=== PATIENT | female | born 1995 | race African-American/Black ===

== ENCOUNTER 2021-04-22 20:15 | Emergency (ER) | payer SELFPAY ==
--- OUTSIDE RECORDS SUMMARY | 2021-04-22 20:19 | XMS REPORT | Continuity of Care Document ---
:1995 Author Organization [facility] t Address [address] [place] [address] Care Team Providers Name Role Phone JESSI Primary Care Physician Unavailable REZA Attending Clinician Unavailable Reza WILSON Attending Clinician Doctor Unassigned, Name Attending Clinician Unavailable Osmin ERICKSON C Attending Clinician YOLIE BOWEN M.D. Attending Clinician Unavailable YOLIE BOWEN M.D. Admitting Clinician Unavailable Payers Payer Name Policy Type Policy Number Effective Date Expiration Date S alyssa MEDICAID PENDING PENDING 2021 00:00:00 Problems Condition Condition Condition Status Onset Resolution Last Treating Co mments Source Name Details Category Date Date Treatment Clinician Date No known No known Disease Unive rs active active ity of problems problems [facility] Allergies, Adverse Reactions, Alerts Allergy Allergy Status Severity Reaction(s) Onset Inactive Treating Comm ents Source Name Type Date Date Clinician Trazodon Propensi Active Rash Univer s e ty to 8-10 ity of adverse 00:00: [place] reaction 00 Medical s Branch TRAZODON DRUG Active Rash Univers E INGREDI 8-10 ity of 00:00: [place] 00 [facility] Branch Social History Social Habit Start Date Stop Date Quantity Comments Source History of tobacco Chews Tobacco Uni versity of use [facility] [place] History [facility] University o f Alcohol Frequency [facility] edical Branch History [facility] o f Alcohol Std Drinks [place] [facility] [place] History [facility] o f Alcohol Binge [facility] al Branch Exposure to Unable to assess Univers ity of SARS-CoV-2 (event) [facility] Alcohol intake 2021-04-22 2021-04-22 .14 /d University of 00:00:00 00:00:00 [facility] Tobacco use and 2017-05-08 2017-05-08 Former user Universi ty of exposure 00:00:00 00:00:00 [facility] Cigarettes smoked 2017-05-08 2017-05-08 Univers ity of current (pack per 00:00:00 00:00:00 [facility] ) - Reported Branch Cigarette 2017-05-08 2017-05-08 University of pack-years 00:00:00 00:00:00 [facility] Alcohol Comment 2017-05-08 2017-05-08 1 glass of wince Uni versity of 00:00:00 00:00:00 daily and when [facility] drinking hard [place] liquor "I drink the whole bottle" Sex [birth year] Universit y of 00:00:00 00:00:00 [facility] Smoking Status Start Date Stop Date Source Current every day smoker 2017-05-08 00:00:00 Uni versity of [facility] Medications Ordered Filled Start Stop Current Ordering Indication Dosage Frequency Signature Comments Components Source Medication Medication Date Date Medication? Clinician (SIG) Name Name HYDROcodone 2021- No 1{tbl} 1 tablet, Univers -acetaminop 04-22 Oral, ity of hen (NORCO 21:30: 20:27 ONCE, 1 [place] as 5) 5-325 mg 00 :00 dose, On Medi karin tablet 1 Tue Branch tablet 04/22/21 at 1630, STEFANIE NaCl 0.9% 2019- No 500mL at 999 Univ ers (NS) bolus 8-10 08-10 mL/hr, 500 it y of infusion 16:00: 16:51 mL, IV [place] 500 mL 00 :00 Infusion, Medical ONCE, 1 Branch dose, 09/16/18 at 1100, STAT ketorolac 2018- No 30mg 30 mg, Unive rs (TORADOL) 09-16 Slow IV ity of injection 16:00: 15:07 Push, [place] 30 mg 00 :00 ONCE, 1 Medical dose, Sat Branch 09/16/18 at 1100, 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 DOXEPIN HCL 2014-02 Yes Take by Un adina (DOXEPIN 1-10 mouth. ity of ORAL) 21:31: [address] DOXEPIN HCL 2014-02 Yes Take by Un adina (DOXEPIN 1-10 mouth. ity of ORAL) 21:31: [address] OLANZAPINE 2014-02 Yes Take by Uni vers ORAL 1-10 mouth. ity of 21:30: [address] OLANZAPINE 2014-02 Yes Take by Uni vers ORAL 1-10 mouth. ity of 21:30: [address] CARBAMAZEPI 2014-02 Yes Take by Un adina NE ORAL 1-10 mouth. ity of 21:30: [address] CARBAMAZEPI 2014-02 Yes Take by Un adina NE ORAL 1-10 mouth. ity of 21:30: [address] DOXEPIN HCL 2014-02 Yes Take by Un adina (DOXEPIN 1-10 mouth. ity of ORAL) 15:31: [address] DOXEPIN HCL 2014-02 Yes Take by Un adina (DOXEPIN 1-10 mouth. ity of ORAL) 15:31: [address] OLANZAPINE 2014-02 Yes Take by Uni vers ORAL 1-10 mouth. ity of 15:30: [place] [facility] Branch OLANZAPINE 2014-02 Yes Take by Uni vers ORAL 1-10 mouth. ity of 15:30: [place] 53 [facility] Branch CARBAMAZEPI 2014-02 Yes Take by Un adina NE ORAL 1-10 mouth. ity of 15:30: [address] Branch CARBAMAZEPI 2014-02 Yes Take by Un adina NE ORAL 1-10 mouth. ity of 15:30: [address] Immunizations Ordered Filled Immunization Date Status Comments Sour e Immunization Name Name Td 2021-04-22 Completed University of 00:00:00 [facility] Td 2015-08-08 Completed University of 00:00:00 [facility] Td 2015-08-08 Completed University of 00:00:00 [facility] Td 2015-08-08 Completed University of 00:00:00 [facility] Td 2015-08-08 Completed University of 00:00:00 [facility] Vital Signs Vital Name Observation Time Observation Value Comments Source Systolic blood 2021-04-22 19:30:00 122 mm[Hg] Univer sity of [facility] Diastolic blood 2021-04-22 19:30:00 85 mm[Hg] Unive rsity [facility] Heart rate 2021-04-22 19:30:00 103 /min [facility] Body temperature 2021-04-22 19:30:00 36.67 Erika [facility] Respiratory rate 2021-04-22 19:30:00 20 /min [facility] Body weight 2021-04-22 19:30:00 77.111 kg [facility] BMI 2021-04-22 19:30:00 30.11 kg/m2 [facility] Oxygen saturation in 2021-04-22 19:30:00 100 /min [facility] Arterial blood by [facility] Pulse oximetry Branch Systolic blood 2018-09-16 15:00:00 105 mm[Hg] Univer sity of [facility] Diastolic blood 2018-09-16 15:00:00 68 mm[Hg] Unive rsity [facility] Heart rate 2018-09-16 15:00:00 82 /min [facility] Respiratory rate 2018-09-16 15:00:00 16 /min [facility] Oxygen saturation in 2018-09-16 15:00:00 100 /min [facility] Arterial blood by [facility] Pulse oximetry Branch Body temperature 2018-09-16 14:02:00 37 Erika [facility] Body weight 2018-09-16 14:02:00 57.607 kg [facility] BMI 2018-09-16 14:02:00 22.50 kg/m2 [facility] Procedures Procedure Date / Time Performing Clinician Source Performed XR TOES 2 VW RIGHT 2021-04-22 19:56:00 [facility] NOTICE OF PRIVACY 2021-04-22 19:25:51 Doctor Unassigned, No [facility] PRACTICES Name [facility] CONSENT/REFUSAL FOR 2021-04-22 19:25:30 [facility] AUTHORIZATION FOR 2019-04-03 06:01:00 Doctor Unassigned, No [facility] RELEASE OF PHI Name [facility] CT HEAD WO CONTRAST 2018-09-16 16:11:37 Israel Solorio [facility] URINALYSIS 2018-09-16 15:05:00 Israel Solorio [place] o f [facility] POCT TEST 2018-09-16 15:02:00 Israel Solorio [facility] Encounters Start End Encounter Admission Attending Care Care Encounter Source Date/Time Date/Time Type Type Clinicians Facility Department ID 2021-04-22 2021-04-22 Emergency X COBB, [facility] ERT [id number] Univers 14:36:00 17:29:00 ABEL kaur [facility] 2021-04-22 2021-04-22 Emergency Cobb, [facility] [id number] Univers 14:36:00 17:29:00 Abel OSORIO [id number] i ty of [place] [id number] [facility] [id number] [facility] 084 Branch 2021-04-22 2021-04-22 Orders Doctor CHARLES [id number] Univers 00:00:00 00:00:00 Only Unassigned, JASPREET [id number] ity of [place] [facility] [id number] Ramos as [id number] [place] [address] Branch 2019-04-03 2019-04-03 Orders Doctor ARACELI [id number] Univers 00:00:00 00:00:00 Only Unassigned, JASPREET [id number] ity of [place] [facility] [id number] [place] as [id number] [place] [address] Branch 2018-09-16 2018-09-16 Emergency Jayes, [facility] [id number] [facility] 09:05:08 11:51:00 Israel Osorio [id number] i ty [place] 4.2.7.2.686 [place] [id number] [place] [id number] Branch Results Test Test Test Results Result Source Description Time Comments Comments CT HEAD WO 2018-09- No acute intracranial Un iversity of CONTRAST 10 findings. Chronic changes [facility] 16:18:00 in the left temporal Bran ch lobeare unchanged CT and discussed in the body the report.?* * * * * * * * ORIGINAL REPORT * * * * * * * *HISTORY:Headache, acute, severe, worst BEGUM of life h/o craniotomymalformation surgery TECHNIQUE: Noncontrast head CT was performed. COMPARISON:11/01/2017, 05/27/2017. FINDINGS: Redemonstrated are postsurgical changes from a left parietal temporalcraniotomy. A region of consolidation is seen in the left temporal lobewith the CSF density collection is identified in the medial aspect, whichcould represent a resection cavity of the small arachnoid cyst. The findings in the left temporal lobe are unchanged from the last CT andcorrelation with prior history. The ventricles and sulci are otherwiseappropriate for patient's age. There is no midline shift. The basal cisterns are preserved. No largevascular territory infarction, intracranial hemorrhage or mass effect isseen. The extracranial tissues demonstrate no acute findings. Ut, Radiant Results Inft User - 09/16/2018 11:20 AM CDT* * * * * * * * ORIGINAL REPORT * * * * * * * *HISTORY:Headache, acute, severe, worst BEGUM of life h/o craniotomymalformation surgery TECHNIQUE: Noncontrast head CT was performed.COMPARISON:2017, 05/27/2017.FINDINGS:Redemon strated are postsurgical changes from a left parietal temporalcraniotomy. A region of consolidation is seen in the left temporal lobewith the CSF density collection is identified in the medial aspect, whichcould represent a resection cavity of the small arachnoid cyst. The findings in the left temporal lobe are unchanged from the last CT andcorrelation with prior history. The ventricles and sulci are otherwiseappropriate for patient's age.There is no midline shift. The basal cisterns are preserved. No largevascular territory infarction, intracranial hemorrhage or mass effect isseen. The extracranial tissues demonstrate no acute findings.IMPRESSIONNo acute intracranial findings. Chronic changes in the left temporal lobeare unchanged CT and discussed in the body the report. URINALYSIS 2018-09-16 15:36:00 Test Item Value Reference Range Interpretation Comme nts APPEARANCE (test code = Slightly Hazy Clear A 3178194354) COLOR (test code = 8211782612) Yellow Yellow PH (test code = 4126125946) 4.8-8.0 SP GRAVITY (test code = >=1.030 1.003-1.030 5350821250) GLU U QUAL (test code = Negative Negative 6402589400) BLOOD (test code = 8812429498) Negative Negative KETONES (test code = Trace Negative A 1297659646) PROTEIN (test code = 2887-8) Negative Negative UROBILIN (test code = 0.2 mg/dL See_Comment [Auto mated message] The 3308372931) system which nerated this result tra nsmitted reference range : 0-1.0 mg/dL. The refe rence range was not used to interpret this result as normal/abnormal . BILIRUBIN (test code = Small Negative A 8289564218) NITRITE (test code = Negative Negative 9054741638) LEUK KAREEM (test code = Moderate Negative A 4851969221) RBC/HPF (test code = See_Comment [Autom ated message] The 1027241252) system which nerated this result tra nsmitted reference range : 0 - 3 HPF. The refere nce range was not used to interpret this result as normal/abnormal . WBC/HPF (test code = >50 See_Comment H [Autom ated message] The 0231964144) system which ge nerated this result tra nsmitted reference range : 0 - 5 HPF. The refere nce range was not used to interpret this result as normal/abnormal . BACTERIA (test code = Many Negative A 9105372199) MUCOUS (test code = Marked Negative LPF A 8824731818) SQ EPITH (test code = HPF 2368422655) Ictotest (test code = Negative 1437289919) Lab Interpretation (test code Abnormal = 27969-4) [id number] 15:02:00 Test Item Value Reference Range Interpretation Comments POCT PREG (test code = 1605) negative On board controls acceptable with present C Line (test code = 3574) POCT PREG LOT # (test code = 3575) [id number] POCT PREG TEST DATE (test 02-07-2020 code = 3576) Lab Interpretation (test code = Normal 22223-0) [facility], [id number] 13:10:00 Test Item Value Reference Range Interpretation Comments RPR (test code = RPR) Non-Reactive Non-Reactive N Thyroid Stimulating Hormone (TSH)2017-05-16 07:55:00 Test Item Value Reference Range Interpretation Comments TSH (test code = TSH) 2.62 mIU/mL 0.270-4.200 N Lipid [id number] 07:52:00 Test Item Value Reference Range Interpretation Comments Cholesterol (test 125 mg/dL 0-200 N code = CHOL) Triglycerides (test 46 mg/dL 9-200 N code = TRIG) HDL (test code = 38 mg/dL 50-60 L HDL) Chol/HDL (test code 3.3 Ratio 0.0-4.4 N = CHOLPHDL) LDL, Calculated 78 0-130 N (NOTE)RISK O F HEART (test code = LDLC) DISEASEPu blished by [place] Heart AssociationAnal yte Optim al Boderline Increased RiskC HOL <200 200-239 >240TRI G <150 150-199 >200HDL Male: >60 <40HDL Female: >60 <50 LDL < 100 130-15 9 >160 LDL NEAR OPTIMAL IS 100- 129 VLDL (test code = 9 mg/dL 5-40 N VLDL) LDL/HDL (test code = 2 LDLPHDL)
[2021-04-22] MEDS ORDERED: HYDROCODONE/APAP 5/325 MG TAB ONE ×2 (21:00→22:40)
[2021-04-22] MEDS ORDERED: LIDOCAINE 1% 20 ML MDV ONE (21:00)
[2021-04-22] MEDS ORDERED: IBUPROFEN 400 MG TAB ONE (21:00)
--- NOTE | 2021-04-22 21:13 | RAD REPORT ---
EXAM DESCRIPTION: RAD - Foot Right 3 View - 04/22/2021 9:02 pm CLINICAL HISTORY: Right foot pain FINDINGS: No fracture or dislocation is seen No bone or joint abnormality noted
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
[2021-04-22] MEDS ORDERED: CEPHALEXIN 250 MG CAP ONE (23:35)
[2021-04-22 23:57] VITALS: TEMP 98.4
[2021-04-23 00:16] VITALS: BP 103/74; O2SAT 96
== END 2021-04-22 23:50 | disposition home or self-care (01) ==
LOC: ER 20:15
PROC: 0HQMXZZ Repair Right Foot Skin, External Approach (ICD-10-PCS; principal; 2021-04-22)
DX: S91.114A Laceration without foreign body of right lesser toe(s) without damage to nail, initial encounter (principal); M79.671 Pain in right foot; S99.821A Other specified injuries of right foot, initial encounter; Y93.55 Activity, bike riding; I10 Essential (primary) hypertension; F17.210 Nicotine dependence, cigarettes, uncomplicated; Z88.8 Allergy status to other drugs, medicaments and biological substances
CPT/HCPCS: 99284

== ENCOUNTER 2021-05-08 01:59 | Emergency (ER) | payer SELFPAY ==
--- OUTSIDE RECORDS SUMMARY | 2021-05-08 02:03 | XMS REPORT | Continuity of Care Document ---
:1995 Author Organization [facility] t Address [address] [place] [address] Care Team Providers Name Role Phone JESSI Primary Care Physician Unavailable Marie NATION Attending Clinician Unavailable Brenda SUE S Attending Clinician REZA Attending Clinician Unavailable Reza WILSON Attending Clinician Doctor Unassigned, Name Attending Clinician Unavailable Elida Albert MD Attending Clinician YOLIE BOWEN M.D. Attending Clinician Unavailable Admitting Clinician Unavailable YOLIE BOWEN M.D. Admitting Clinician Unavailable Payers Payer Name Policy Type Policy Number Effective Date Expiration Date S alyssa MEDICAID PENDING PENDING 2021 00:00:00 Problems Condition Condition Condition Status Onset Resolution Last Treating Co mments Source Name Details Category Date Date Treatment Clinician Date No known No known Disease Unive rs active active ity of problems problems [facility] Allergies, Adverse Reactions, Alerts Allergy Allergy Status Severity Reaction(s) Onset Inactive Treating Comm ents Source Name Type Date Date Clinician HALOPERI DRUG Active Anaphylaxis Uni vers DOL INGREDI 3-31 ity of 00:00: [place] 00 [facility] Haloperi Propensi Active Anaphylaxis U nivers dol ty to 3-31 ity of adverse 00:00: [place] reaction 00 Medical s Branch Trazodon Propensi Active Rash Univer s e ty to 8-10 ity of adverse 00:00: [place] reaction Medical s Branch TRAZODON DRUG Active Rash Univers E INGREDI 8-10 ity of 00:00: [place] 00 Medical [place] Social History Social Habit Start Date Stop Date Quantity Comments Source History of tobacco Chews Tobacco Uni versity of use [facility] History SDIN University o f Alcohol Frequency [facility] Branch History SDIN University o f Alcohol Std Drinks [facility] History [facility] o f Alcohol Binge [facility] Exposure to Unable to assess Univers ity of SARS-CoV-2 (event) [facility] Alcohol intake 2021-04-22 2021-04-22 .14 /d University of 00:00:00 00:00:00 [facility] Tobacco use and 2017-05-08 2017-05-08 Former user Universi ty of exposure 00:00:00 00:00:00 [facility] Cigarettes smoked 2017-05-08 2017-05-08 Univers ity of current (pack per 00:00:00 00:00:00 [facility] ) - Reported Branch Cigarette 2017-05-08 2017-05-08 University of pack-years 00:00:00 00:00:00 [facility] Alcohol Comment 2017-05-08 2017-05-08 1 glass of wince Uni versity of 00:00:00 00:00:00 daily and when [facility] drinking hard [place] liquor "I drink the whole bottle" Sex Ass[birth year] Universit y of 00:00:00 00:00:00 [facility] Smoking Status Start Date Stop Date Source Current every day smoker 2017-05-08 00:00:00 Uni versity of [facility] Medications Ordered Filled Start Stop Current Ordering [...] 500mL at 999 Univ ers (NS) bolus 09-16-10 mL/hr, 500 it y of infusion 16:00: 16:51 mL, IV [place] 500 mL 00 :00 Infusion, Medical ONCE, 1 Branch dose, 09/16/18 at 1100, STAT ketorolac 2019- No 30mg 30 mg, Unive rs (TORADOL) 09-16 Slow IV ity of injection 16:00: 15:07 Push, [place] 30 mg 00 :00 ONCE, 1 Medical dose, Sat Branch 09/16/18 at 1100, Routine
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 DOXEPIN HCL 2014-02 Yes Take by Un adina (DOXEPIN 1-10 mouth. ity of ORAL) 21:31: [address] DOXEPIN HCL 2014-02 Yes Take by Un adina (DOXEPIN 1-10 mouth. ity of ORAL) 21:31: [address] OLANZAPINE 2014-02 Yes Take by Uni vers ORAL 1-10 mouth. ity of 21:30: [address] OLANZAPINE 2014-02 Yes Take by Uni vers ORAL 1-10 mouth. ity of 21:30: [address] CARBAMAZEPI 2014-02 Yes Take by Un adina NE ORAL 1-10 mouth. ity of 21:30: [address] CARBAMAZEPI 2014-02 Yes Take by Un adina NE ORAL 1-10 mouth. ity of 21:30: [address] DOXEPIN HCL 2014-02 Yes Take by Un adina (DOXEPIN 1-10 mouth. ity of ORAL) 15:31: [address] DOXEPIN HCL 2014-02 Yes Take by Un adina (DOXEPIN 1-10 mouth. ity of ORAL) 15:31: [address] DOXEPIN HCL 2014-02 Yes Take by Un adina (DOXEPIN 1-10 mouth. ity of ORAL) 15:31: [address] OLANZAPINE 2014-02 Yes Take by Uni vers ORAL 1-10 mouth. ity of 15:30: [address] OLANZAPINE 2014-02 Yes Take by Uni vers ORAL 1-10 mouth. ity of 15:30: [address] OLANZAPINE 2014-02 Yes Take by Uni vers ORAL 1-10 mouth. ity of 15:30: [address] CARBAMAZEPI 2014-02 Yes Take by Un adina NE ORAL 1-10 mouth. ity of 15:30: [address] CARBAMAZEPI 2014-02 Yes Take by Un adina NE ORAL 1-10 mouth. ity of 15:30: [address] CARBAMAZEPI 2014-02 Yes Take by Un adina NE ORAL 1-10 mouth. ity of 15:30: [address] Immunizations Ordered Filled Immunization Date Status Comments Sour e Immunization Name Name Td 2021-04-22 Completed University of 00:00:00 [facility] Td 2021-04-22 Completed University of 00:00:00 [facility] Td 2015-08-08 Completed University of 00:00:00 [facility] Td 2015-08-08 Completed University of 00:00:00 [facility] Td 2015-08-08 Completed University of 00:00:00 [facility] Td 2015-08-08 Completed University of 00:00:00 [facility] Td 2015-08-08 Completed [place] of 00:00:00 [facility] Vital Signs Vital Name Observation Time Observation Value Comments Source Heart rate 2021-05-07 23:32:00 113 /min [facility] Body temperature 2021-05-07 23:32:00 36.44 [facility] Respiratory rate 2021-05-07 23:32:00 18 /min [facility] Branch Body height 2021-05-07 23:32:00 160 cm [facility] [place] [facility] Body weight 2021-05-07 23:32:00 78.336 kg [facility] [place] [facility] BMI 2021-05-07 23:32:00 30.59 kg/m2 [facility] [place] [facility] Oxygen saturation in 2021-05-07 23:32:00 99 /min University of Arterial blood by [place] [facility] karin Pulse oximetry Branch Systolic blood 2021-05-07 23:32:00 115 mm[Hg] Univer sity of pressure [place] [facility] Diastolic blood 2021-05-07 23:32:00 69 mm[Hg] Unive rsity of pressure [place] [facility] Systolic blood 2021-04-22 19:30:00 122 mm[Hg] Univer sity of pressure [place] [facility] Diastolic blood 2021-04-22 19:30:00 85 mm[Hg] Unive rsity of pressure [place] [facility] Heart rate 2021-04-22 19:30:00 103 /min [facility] [place] [facility] Body temperature 2021-04-22 19:30:00 36.67 Erika [facility] [place] [facility] Respiratory rate 2021-04-22 19:30:00 20 /min [facility] [place] [facility] Body weight 2021-04-22 19:30:00 77.111 kg [facility] [place] [facility] BMI 2021-04-22 19:30:00 30.11 kg/m2 [facility] [place] [facility] Oxygen saturation in 2021-04-22 19:30:00 100 /min [facility] of Arterial blood by [place] [facility] karin Pulse oximetry Branch Systolic blood 2018-09-16 15:00:00 105 mm[Hg] Univer sity of [facility] [place] [facility] Diastolic blood 2018-09-16 15:00:00 68 mm[Hg] Unive rsity of pressure [place] [facility] Heart rate 2018-09-16 15:00:00 82 /min [facility] [place] [facility] Respiratory rate 2018-09-16 15:00:00 16 /min [facility] [place] [facility] Oxygen saturation in 2018-09-16 15:00:00 100 /min University of Arterial blood by [place] [facility] karin Pulse oximetry Branch Body temperature 2018-09-16 14:02:00 37 [facility] Body weight 2018-09-16 14:02:00 57.607 kg [facility] BMI 2018-09-16 14:02:00 22.50 kg/m2 [facility] Procedures Procedure Date / Time Performing Clinician Source Performed ASSIGNMENT OF BENEFITS 2021-05-07 23:44:26 Doctor Unassigned, No [facility] CONSENT/REFUSAL FOR 2021-05-07 23:20:45 Doctor Unassigned, No [facility] XR TOES 2 VW RIGHT 2021-04-22 19:56:00 [facility] NOTICE OF PRIVACY 2021-04-22 19:25:51 Doctor Unassigned, No [facility] CONSENT/REFUSAL FOR 2021-04-22 19:25:30 [facility], [facility] AUTHORIZATION FOR 2019-04-03 06:01:00 Doctor Unassigned, No [facility] RELEASE OF [facility] CT HEAD WO CONTRAST 2018-09-16 16:11:37 Israel [facility] URINALYSIS 2018-09-16 15:05:00 Israel [facility] POCT TEST 2018-09-16 15:02:00 Israel [facility] Encounters Start End Encounter Admission Attending Care Care Encounter Source Date/Time Date/Time Type Type Clinicians Facility Department ID 2021-05-07 2021-05-07 Emergency X MARA NATION ERT [id number] Univers 18:38:00 20:20:00 CLEO kaur [facility] [place] [facility] 2021-05-07 2021-05-07 Emergency MARA Nation [id number] Univers 18:38:00 20:20:00 Cleo OSORIO [id number] i ty [facility] [id number] [facility] [id number] [place] [address] Branch 2021-04-22 2021-04-22 Emergency X REZA KSNUNU ERT [id number] Univers 14:36:00 17:29:00 ABEL ity of [facility] 2021-04-22 2021-04-22 Emergency [place], [facility] [id number] [facility] 14:36:00 17:29:00 Abel OSORIO [id number] i ty of [place] [id number] [facility] [id number] [address] 2021-04-22 2021-04-22 Orders Doctor ARACELI [id number] Univers 00:00:00 00:00:00 Only Unassigned, JASPREET [id number] ity of [facility] [id number] Ramos as [id number] [address] 2019-04-03 2019-04-03 Orders Doctor ARACELI [id number] Univers 00:00:00 00:00:00 Only Unassigned, JASPREET [id number] ity of [facility] [id number] Ramos as [id number] [address] 2018-09-16 2018-09-16 Emergency [facility], [facility] [id number] [facility] 09:05:08 11:51:00 Israel Osorio [id number] i ty of [place] [id number] [facility] [id number] [address] Results Test Test Test Results Result Source Description Time Comments Comments CT HEAD WO 2018-09- No acute intracranial Un iversity of CONTRAST 10 findings. Chronic changes [facility] [place] 16:18:00 in the left temporal Bran ch [...] The extracranial tissues demonstrate no acute findings. [facility], Radiant Results Inft User - 09/16/2018 11:20 [...] (test code = Slightly Hazy Clear A 0158670374) COLOR (test code = 0173855937) Yellow Yellow PH (test code = 8772113263) 4.8-8.0 SP GRAVITY (test code = >=1.030 1.003-1.030 5111639038) GLU U QUAL (test code = Negative Negative 5576963239) BLOOD (test code = 4705907331) Negative Negative KETONES (test code = Trace Negative A 3828596061) PROTEIN (test code = 2887-8) Negative Negative UROBILIN (test code = 0.2 mg/dL See_Comment [Auto mated message] The 7338579305) system which ge nerated this result tra nsmitted reference range : 0-1.0 mg/dL. The refe rence range was not used to interpret this result as normal/abnormal . BILIRUBIN (test code = Small Negative A 8913505917) NITRITE (test code = Negative Negative 6063749801) LEUK KAREEM (test code = Moderate Negative A 5222400892) RBC/HPF (test code = See_Comment [Autom ated message] The 8441793515) system which ge nerated this result tra nsmitted reference range : 0 - 3 HPF. The refere nce range was not used to interpret this result as normal/abnormal . WBC/HPF (test code = >50 See_Comment H [Autom ated message] The 1421696234) system which ge nerated this result tra nsmitted reference range : 0 - 5 HPF. The refere nce range was not used to interpret this result as normal/abnormal . BACTERIA (test code = Many Negative A 4822097825) MUCOUS (test code = Marked Negative LPF A 5370674601) SQ EPITH (test code = HPF 1713455565) Ictotest (test code = Negative 8173506309) Lab Interpretation (test code Abnormal = 79516-2) [id number]00 Test Item Value Reference Range Interpretation Comments POCT PREG (test code = 1605) negative On board controls acceptable with present C Line (test code = 3574) POCT PREG LOT # (test code = 3575) [id number] POCT PREG TEST DATE (test 02-07-2020 code = 3576) Lab Interpretation (test code = Normal 96595-8) [facility] [id number] 13:10:00 Test Item Value Reference Range Interpretation Comments RPR (test code = RPR) Non-Reactive Non-Reactive N Thyroid Stimulating Hormone (TSH)2017-05-16 07:55:00 Test Item Value Reference Range Interpretation Comments TSH (test code = TSH) 2.62 mIU/mL 0.270-4.200 N Lipid [id number] 07:52:00 Test Item Value Reference Range Interpretation Comments Cholesterol (test 125 mg/dL 0-200 N code = CHOL) Triglycerides (test 46 mg/dL 9-200 N code = TRIG) HDL (test code = 38 mg/dL 50-60 L HDL) Chol/HDL (test code 3.3 Ratio 0.0-4.4 N = CHOLPHDL) LDL, Calculated 78 0-130 N (NOTE)RISK O F HEART (test code = LDLC) DISEASEPu blished by [place] Heart AssociationAnal yte Optim al Boderline Increased RiskC HOL <200 200-239 >240TRI G <150 150-199 >200HDL Male: >60 <40HDL Female: >60 <50 LDL < 100 130-15 9 >160 LDL NEAR OPTIMAL IS 100- 129 VLDL (test code = 9 mg/dL 5-40 N VLDL) LDL/HDL (test code = 2 LDLPHDL)
--- NOTE | 2021-05-08 04:55 | EDPHYS ---
Physician Documentation [facility] Name: Felicia Mtz Age: 26 yrs Sex: Female : 1995 Arrival Date: 05/08/2021 Time: 02:00 Bed Treatment Private MD: ED Physician Clyde Schrader HPI: 05/08 04:50 This 26 yrs old Black Female presents to ER via Ambulatory with complaints of Cough, karla Dizziness, Headache. 04:50 The patient or guardian reports cough, that is constant, difficulty breathing. Onset: karla The symptoms/episode began/occurred 2 day(s) ago. Severity of symptoms: At their worst the symptoms were mild, moderate, in the emergency department the symptoms are unchanged. Modifying factors: The symptoms are alleviated by nothing, the symptoms are aggravated by nothing. Associated signs and symptoms: The patient has no apparent associated signs or symptoms. Unable to obtain HPI due to. The patient has not experienced similar symptoms in the past. 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 Patient has never been vaccinated. - Social history:: Smoking status: Patient reports the use of cigarette tobacco products, smokes one-half pack cigarettes per day. ROS: 04:51 Constitutional: Negative for fever, chills, and weight loss, Eyes: Negative for injury, karla pain, redness, and discharge, ENT: Negative for injury, pain, and discharge, Neck: Negative for injury, pain, and swelling, Cardiovascular: Negative for chest pain, palpitations, and edema, Abdomen/GI: Negative for abdominal pain, nausea, vomiting, diarrhea, and constipation, Back: Negative for injury and pain, : Negative for injury, bleeding, discharge, and swelling, MS/Extremity: Negative for injury and deformity, Skin: Negative for injury, rash, and discoloration, Neuro: Negative for headache, weakness, numbness, tingling, and seizure, Psych: Negative for depression, anxiety, suicide ideation, homicidal ideation, and hallucinations, Allergy/Immunology: Negative for hives, rash, and allergies, Endocrine: Negative for neck swelling, polydipsia, polyuria, polyphagia, and marked weight changes, Hematologic/Lymphatic: Negative for swollen nodes, abnormal bleeding, and unusual bruising. 04:51 Respiratory: Positive for cough, "sounds productive". Exam: 04:51 Constitutional: This is a well developed, well nourished patient who is awake, alert, karla and in no acute distress. Head/Face: Normocephalic, atraumatic. Eyes: Pupils equal round and reactive to light, extra-ocular motions intact. Lids and lashes normal. Conjunctiva and sclera are non-icteric and not injected. Cornea within normal limits. Periorbital areas with no swelling, redness, or edema. ENT: Nares patent. No nasal discharge, no septal abnormalities noted. Tympanic membranes are normal and external auditory canals are clear. Oropharynx with no redness, swelling, or masses, exudates, or evidence of obstruction, uvula midline. Mucous membranes moist. Neck: Trachea midline, no thyromegaly or masses palpated, and no cervical lymphadenopathy. Supple, full range of motion without nuchal rigidity, or vertebral point tenderness. No Meningismus. Chest/axilla: Normal chest wall appearance and motion. Nontender with no deformity. No lesions are appreciated. Cardiovascular: Regular rate and rhythm with a normal S1 and S2. No gallops, murmurs, or rubs. Normal PMI, no JVD. No pulse deficits. Abdomen/GI: Soft, non-tender, with normal bowel sounds. No distension or tympany. No guarding or rebound. No evidence of tenderness throughout. Back: No spinal tenderness. No costovertebral tenderness. Full range of motion. Skin: Warm, dry with normal turgor. Normal color with no rashes, no lesions, and no evidence of cellulitis. MS/ Extremity: Pulses equal, no cyanosis. Neurovascular intact. Full, normal range of motion. Neuro: Awake and alert, GCS 15, oriented to person, place, time, and situation. Cranial nerves II-XII grossly intact. Motor strength 5/5 in all extremities. Sensory grossly intact. Cerebellar exam normal. Normal gait. Psych: Awake, alert, with orientation to person, place and time. Behavior, mood, and affect are within normal limits. 04:51 Respiratory: mild respiratory distress is noted, Respirations: labored breathing, that is mild, Breath sounds: bronchial sounds, that are mild, decreased breath sounds, that are mild, rhonchi, that are mild, stridor, is not appreciated, + upper airway congestion. Vital Signs: 02:18 BP 104 / 73; Pulse 80; Resp 18; Temp 98.8(TE); Pulse Ox 97% on R/A; Weight 78.93 kg; tw5 Height 5 ft. 3 in. (160.02 cm); Pain 8/10; 04:30 BP 110 / 71 LA Supine (auto/reg); Pulse 72 MON; Resp 18 S; Temp 98(O); Pulse Ox 100% on tk1 R/A; Pain 7/10; 02:18 Body Mass Index 30.82 (78.93 kg, 160.02 cm) tw5 MDM: 03:52 Patient medically screened. karla 04:52 Differential diagnosis: flu, URI. Antibiotic administration: The patient is discharged karla and will get outpatient antibiotics, Zithromax. Data reviewed: vital signs, nurses notes. Data interpreted: court monitor: not applicable for this patient encounter. rate is 80 beats/min, rhythm is regular, Pulse oximetry: on room air. Test interpretation: by ED physician or midlevel provider:. Counseling: I had a detailed discussion with the patient and/or guardian regarding: the historical points, exam findings, and any diagnostic results supporting the discharge/admit diagnosis, lab results. Administered Medications: 04:59 Drug: Zithromax (azithromycin) 500 mg Route: PO; tk1 05:20 Follow up: Response: No adverse reaction tk1 Disposition Summary: 05/08/21 04:55 Discharge Ordered Location: Home karla Problem: new karla Symptoms: have improved karla Condition: Stable karla Diagnosis - Acute bronchitis, unspecified karla - Cough karla - Tobacco abuse counseling karla - Tobacco use karla Followup: karla - With: Private Physician - When: 2 - 3 days - Reason: Recheck today's complaints, Continuance of care, Re-evaluation by your physician Discharge Instructions: - Discharge Summary Sheet karla - Acute Bronchitis, Adult karla - Steps to Quit Smoking karla - Health Risks of Smoking karla - Cool Mist Vaporizer karla - Steps to Quit Smoking, [id number] karla - Cough, Adult, [id number] karla - Cough, Adult [facility] Forms: - Medication Reconciliation Form karla - Thank You Letter karla - Antibiotic Education karla - Prescription Opioid Use [facility] Prescriptions: - Zithromax Z-Ludin 250 mg Oral Tablet - take 1 tablet by ORAL route as directed for 5 days Day 1 - take two (2) tablets karla one time. Day 2, 3, 4 , 5 take one (1) tablet once daily.; 6 tablet; Refills: 0, Product Selection Permitted - Medrol (Ludin) 4 mg Oral Tablets, Dose Pack - take 1 tablet by ORAL route as directed - follow package instructions; 1 karla packet; Refills: 0, Product Selection Permitted - Bromfed DM 2-30-10 mg/5 mL Oral syrup - take 7.5 milliliter by ORAL route every 4 hours; 160 milliliter; Refills: 0, karla Product Selection Permitted Signatures: Clyde Schrader MD MD cha Wood, Tiffany tw5 Gwen Mcmanus tk1
--- NOTE | 2021-05-08 04:55 | ER ---
Nurse's Notes [facility] Name: Felicia Mtz Age: 26 yrs Sex: Female : 1995 Arrival Date: 05/08/2021 Time: 02:00 Bed Treatment Private MD: Diagnosis: Acute bronchitis, unspecified;Cough;Tobacco abuse counseling;Tobacco use Presentation: 05/08 02:18 Chief complaint: Patient states: "I had a seizure Tuesday night. For two days after that tw5 I had a real bad migraine. I have been coughing up green shit for about two days now.". Coronavirus screen: Vaccine status: Patient reports receiving the 2nd dose of the covid vaccine. j and J. Ebola Screen: Patient negative for fever greater than or equal to 101.5 degrees Fahrenheit, and additional compatible Ebola Virus Disease symptoms Patient denies exposure to infectious person. Patient denies travel to an Ebola-affected area in the 21 days before illness onset. Initial Sepsis Screen: Does the patient meet any 2 criteria? No. Patient's initial sepsis screen is negative. Does the patient have a suspected source of infection? No. Patient's initial sepsis screen is negative. Risk Assessment: Do you want to hurt yourself or someone else? Patient reports no desire to harm self or others. Onset of symptoms was May 06, 2021. 02:18 Method Of Arrival: Ambulatory tw5 02:18 Acuity: MITZI 4 tw5 Triage Assessment: 02:20 Headache History: The patient has had previous headaches and this one is similar to tw5 previous episodes. General: Appears in no apparent distress. Behavior is calm, cooperative, appropriate for age. Pain: Pain currently is 8 out of 10 on a pain scale. Pain began 2-3 days ago. Also complains of "coughing up green shit.". Neuro: Level of Consciousness is awake, alert, obeys commands, Oriented to person, place, time, situation. 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 Patient has never been vaccinated. - Social history:: Smoking status: Patient reports the use of cigarette tobacco products, smokes one-half pack cigarettes per day. Screenin:30 Abuse screen: Denies threats or abuse. Denies injuries from another. Nutritional tk1 screening: No deficits noted. Tuberculosis screening: No symptoms or risk factors identified. Fall Risk None identified. Assessment: 04:45 General: Appears in no apparent distress. comfortable, well groomed, well developed, tk1 well nourished, Behavior is calm, cooperative, appropriate for age. Pain: Complains of pain in throat Pain does not radiate. Pain currently is 7 out of 10 on a pain scale. Quality of pain is described as burning. Neuro: Level of Consciousness is awake, Oriented to person, place, time, situation, Appropriate for age Director Mobile are equal bilaterally Moves all extremities. Gait is steady, Speech is normal. Cardiovascular: Capillary refill < 3 seconds is brisk in bilateral fingers. Respiratory: Airway is patent Respiratory effort is even, unlabored, Respiratory pattern is regular, symmetrical, Breath sounds are clear bilaterally. GI: No deficits noted. No signs and/or symptoms were reported involving the gastrointestinal system. : No deficits noted. No signs and/or symptoms were reported regarding the genitourinary system. EENT: Reports difficulty swallowing since yesterday. Derm: No deficits noted. No signs and/or symptoms reported regarding the dermatologic system. Musculoskeletal: No deficits noted. No signs and/or symptoms reported regarding the musculoskeletal system. 05:20 Reassessment: D/C per MD order. Discharge/Prescription instructions given to patient. tk1 Verbalized understanding. Vital Signs: 02:18 BP 104 / 73; Pulse 80; Resp 18; Temp 98.8(TE); Pulse Ox 97% on R/A; Weight 78.93 kg; tw5 Height 5 ft. 3 in. (160.02 cm); Pain 8/10; 04:30 BP 110 / 71 LA Supine (auto/reg); Pulse 72 MON; Resp 18 S; Temp 98(O); Pulse Ox 100% on tk1 R/A; Pain 7/10; 02:18 Body Mass Index 30.82 (78.93 kg, 160.02 cm) tw5 ED Course: 02:00 Patient arrived in ED. kc5 02:20 Triage completed. tw 02:20 Arm band placed on right wrist. tw5 02:24 Patient notified of wait time. tw5 03:52 Clyde Schrader MD is Attending Physician. karla 04:30 Patient has correct armband on for positive identification. Bed in low position. Call tk1 light in reach. Adult w/ patient. 04:30 No provider procedures requiring assistance completed. Patient did not have IV access tk1 during this emergency room visit. 04:58 Gwen Mcmanus is Primary Nurse. tk1 Administered Medications: 04:59 Drug: Zithromax (azithromycin) 500 mg Route: PO; tk1 05:20 Follow up: Response: No adverse reaction tk1 Outcome: 04:30 Discharged to home ambulatory, with friend. tk1 04:30 Condition: stable 04:30 Discharge instructions given to patient, friend, Instructed on discharge instructions, follow up and referral plans. medication usage, Demonstrated understanding of instructions, follow-up care, medications, Prescriptions given X 3. 04:55 Discharge ordered by . [facility] 05:21 Patient left the ED. tk1 Signatures: Clyde Schrader MD MD cha Wood, Tiffany tw5 Lora Peralta [facility] Gwen Mcmanus tk1
[2021-05-08] MEDS ORDERED: AZITHROMYCIN 250 MG TAB ONE (05:02)
[2021-05-08 07:19] VITALS: BP 110/71; TEMP 98; O2SAT 100
== END 2021-05-08 05:21 | disposition home or self-care (01) ==
LOC: ER 01:59
DX: J20.9 Acute bronchitis, unspecified (principal); Z72.0 Tobacco use; Z71.6 Tobacco abuse counseling; I10 Essential (primary) hypertension; F32.A Depression, unspecified
CPT/HCPCS: 99283